=== PATIENT | male | born 1965 ===

== ENCOUNTER 2017-05-25 07:25 | Day surgery (SDC) | payer MEDICAID ==
[2016-10-22 10:10] VITALS: BMI 29.9
[2017-05-25] MEDS ORDERED: Propofol 10 mg/ml Inj (20 ML) ONE ×2 (09:33)
[2017-05-25] MEDS ORDERED: Lactated Ringer's 500 ML IV SCH (09:45)
[2017-05-25] MEDS ORDERED: Simethicone 40 mg/0.6 ml Liquid (30 ml) ONE (09:49)
[2017-05-25 10:18] VITALS: TEMP 98; O2SAT 100
[2017-05-25 11:28] VITALS: PULSE 64
[2017-05-25 11:34] VITALS: BP 139/83; RESP 17
== END 2017-05-25 11:30 | disposition home or self-care (01) ==
LOC: C.ENDO 07:25
PROVIDERS: ATTEND Internal Medicine
DX: Z12.11 Encounter for screening for malignant neoplasm of colon (principal); K64.8 Other hemorrhoids
CPT/HCPCS: 45378; J2704; J7120